=== PATIENT | female | born 1930 | race Caucasian/White ===

== ENCOUNTER 2016-12-29 15:23 | Emergency (ER) | payer MEDICARE, OTHER ==
[~2016-12-29] VITALS: Ht 165.1 cm; Wt 59.0 kg
[2016-12-29 15:48] LABS: Urine RBC None Seen /hpf (0 - 4)
[2016-12-29 16:49] LABS: Basophils # (auto) 0 uL; Basophils % (auto) 0.5 % (0.0-2.0); Eosinophils # (auto) 0.1 uL; Eosinophils % (auto) 0.9 % (0.0-7.0); Hematocrit 43.8 % (36.0-46.0); Hemoglobin 14.7 g/dL (12.2-16.2); Lymphocytes # (auto) 0.3 uL; Mean Corpuscular Hgb Conc. 33.5 g/dL (32.0-36.0); Mean Corpuscular Volume 86.5 fL (80.0-100.0); Monocytes # (auto) 0.5 uL; Neutrophils # (auto) 5.5 uL; Neutrophils % (auto) 85.6 % (37.0-80.0); Platelet Count (auto) 137 10^3/uL (140-450); White Blood Cell 6.5 10^3/uL (4.4-10.8)
[2016-12-29 17:16] LABS: Albumin 3.2 g/dL (3.4-5.0); Bilirubin, Total 3.5 mg/dL (0.2-1.0); Calcium 8.8 mg/dL (8.5-10.1); Magnesium 2.2 mg/dL (1.6-2.6); Potassium 3.8 mmol/L (3.5-5.1); Total Protein 7.1 g/dL (6.4-8.2)
[2016-12-29 17:21] LABS: Urine Bilirubin Negative (Negative); Urine Blood Negative /uL (Negative); Urine Color Yellow (Yellow); Urine Glucose Normal (Normal); Urine Ketone Negative (Negative); Urine Nitrite Negative (Negative); Urine Squamous Epithelial Cell FEW /hpf (<5); Urine Urobilinogen Normal (Negative); Urine pH 6.5 (5.0-8.0)
[2016-12-29] MEDS ORDERED: ONDANSETRON HCL 4 MG/2 ML VIAL ONE (18:54)
[2016-12-29] MEDS ORDERED: SODIUM CHLORIDE 0.9% 1,000 ML IV ONE (22:15)
[2016-12-29 23:11] LABS: INR 0.99 (0.9-1.15); Prothrombin Time 10.7 sec (9.37-12.3)
[2016-12-30] MEDS ORDERED: ONDANSETRON HCL 4 MG/2 ML VIAL IV ONE (00:45)
[2016-12-30 06:30] VITALS: BP 162/92
== END 2016-12-30 06:49 | disposition short-term general hospital (02) ==
LOC: EDBD 15:23 → EDUNIT# 15:23 → ER 15:34
DX: K57.30 Diverticulosis of large intestine without perforation or abscess without bleeding (principal); K57.10 Diverticulosis of small intestine without perforation or abscess without bleeding; N26.1 Atrophy of kidney (terminal); I71.4 Abdominal aortic aneurysm, without rupture; K83.1 Obstruction of bile duct; I11.0 Hypertensive heart disease with heart failure; I50.9 Heart failure, unspecified; I25.2 Old myocardial infarction; Z90.710 Acquired absence of both cervix and uterus; Z95.1 Presence of aortocoronary bypass graft; R16.1 Splenomegaly, not elsewhere classified; Z88.5 Allergy status to narcotic agent; Z88.0 Allergy status to penicillin
CPT/HCPCS: 36415; 71020; 74176; 76705; 80053; 81001; 83605; 83735; 84443; 84484; 85025; 85610; 85730; 87040; 87086; 93005; 96361; 96374; 99285; J2405; J7030